=== PATIENT | male | born 1990 | race Caucasian/White ===

== ENCOUNTER 2016-04-30 10:04 | Emergency (ER) | payer OTHER ==
[~2016-04-30] VITALS: Ht 177.8 cm; Wt 95.3 kg
[~2016-04-30 10:04] MED LIST: BIAXIN250 MG PO; CYCLOBENZAPRINE10 M1 PO; FLEXERIL10 MG PO; HYDROCODONE/APA1 TA1 PO; LIORESAL 10MG T10 MG PO; MOTRIN 800MG T800 MG PO; NAPROSYN500 M1 PO; PERCOCET 325 MG1 TA2 PO; PERCOCET 5-3251 EACH PO
--- NOTE | 2016-04-30 11:16 | ED NECK/BACK PAIN COMPLAINT ---
History of Present Illness General Chief Complaint: Low Back Pain/Injury Stated Complaint: LOWER BACK PAIN Source: patient Exam Limitations: no limitations Vital Signs & Intake/Output Vital Signs & Intake/Output ED Intake and Output 05/01 0000 04/30 1200 Intake Total Output Total Balance Patient 210 lb Weight Allergies Coded Allergies: acetaminophen (Severe, "I DONT RESPOND WELL TO IT" 04/30/16) Reconcile Medications Cyclobenzaprine HCl 5 MG TABLET 1 TAB PO TIDPRN PRN muscle spasms Methylprednisolone. (Medrol) 4 MG TAB.DS.PK 1 DP PO AD disc herniation 6 on day 1 then reduce by one tablet daily until gone Naproxen (Naprosyn) 500 MG TABLET 1 TAB PO BID PRN pain and inflammation Triage Note: 26 Y/O MALE C/O MID/LOWER BACK PAIN. STATES ITS A "RE-OCCURING INJURY". DENIES RECENT INJURY OR TRAUMA. HAS NOT TAKEN ANY MEDICATION FOR PAIN. STATES PAIN RADIATES DOWN R LEG. Triage Nurses Notes Reviewed? yes HPI: This patient is a 26-year-old male past medical history including chronic lower back pain who presented to the emergency department today for evaluation of worsening lower back pain. The patient reported that he noticed the pain got worse when he tried to get up on Wednesday. He reported, "my back feels like an accordion, like I can't stretch it out." The patient reported that the pain is been constant since onset. He reported that he is only comfortable, "in the position on my right side." The pain occasionally radiates down his right leg to his right foot. The pain is sharp and throbbing. The patient has not tried taking a medication for his pain. He has never seen a specialist for this pain. He reported that he has been diagnosed with muscle strains in the past. 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 The patient denied any bowel or bladder incontinence, saddle paresthesia, numbness or tingling in his extremities, abdominal pain, urinary burning, urgency, frequency, blood in the urine, fevers, chills, chest pain, or difficulty breathing. Past History Travel History Traveled to [place] past 21 day No Medical History Any Pertinent Medical History? 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 Tetanus Vaccine: 08/22/15 Surgical History Surgical History: ACL RECONSTRUCTION R KNEE Psychosocial History What is your primary language Bahraini Tobacco Use: Current Not Daily Family History Hx Contributory? No Review of Systems Review of Systems Constitutional: Reports: no symptoms. Eyes: Reports: no symptoms. Ears, Nose, Throat, Mouth: Reports: no symptoms. Respiratory: Reports: no symptoms. Cardiovascular: Reports: no symptoms. Gastrointestinal/Abdominal: Reports: no symptoms. Musculoskeletal: Reports: see HPI. Skin: Reports: no symptoms. Neurological/Psychological: Reports: no symptoms. All Other Systems: Reviewed and Negative Physical Exam Physical Exam Neck: normal inspection, supple, full range of motion, normal alignment Comments: Well-developed well-nourished person in no acute distress HEENT: Normal EENT exam, head normocephalic, moist mucous membranes Back: Antalgic gait. Positive lumbar midline tenderness. Right and left sided lumbar paraspinal musculature tenderness to palpation. Positive straight leg raise on the left at 45. Positive straight leg raise on the right at 30 Respiratory: No respiratory distress. Speaking in full sentences Abdomen: Soft, nontender nondistended, no appreciable organomegaly. Normal bowel sounds. Extremity: Normal and equal pulses. 5 out of 5 muscular strength in all extremities Neuro: Alert oriented x3, cranial nerves II through XII grossly intact. Skin: No appreciable rash on exposed skin, skin is warm and dry. Psych: Mood and affect is normal Progress Differential Diagnosis: AAA, aortic dissection, cauda equina syn, herniated disc , myofascial strain, pyelo/UTI, sciatica, spinal cord inj, thoracic outlet syn, T/L spine injury, ureterolithiasis Plan of Care: Orders Procedure Date/time Status CT LUMB SPINE WO IV CONTRAST 04/30 1110 Active Current Medications Sig/Caroline Start time Last Medication Dose Stop Time Status Admin Carisoprodol 350 MG ONCE ONE 04/30 1115 AC (Soma) 04/30 1116 Ketorolac 60 MG ONCE ONE 04/30 1115 AC Tromethamine 04/30 1116 (Toradol) Diagnostic Imaging: Viewed by Me: CT Scan. Discussed w/RAD: CT Scan. Radiology Impression: PATIENT: YOLANDA GE PRESENT AGE: 26 PATIENT ACCOUNT NO: [id number] : 90 LOCATION: [facility] ORDERING PHYSICIAN: JANE BURRIS PA-C SERVICE DATE: 04/30/160 EXAM TYPE: CAT - CT LUMB SPINE WO IV CONTRAST EXAMINATION: CT LUMBAR SPINE WITHOUT CONTRAST CLINICAL INFORMATION: Rule out disc herniation. Low back pain. COMPARISON: None. TECHNIQUE: Helical non-contrast CT images were obtained through the lumbar spine and 1.25 and 2.5 mm axial reconstructions were reviewed along with sagittal and coronal MPRs. DLP: 1040.48 mGy-cm. FINDINGS: Lumbar spinal alignment is normal. The lumbar vertebrae demonstrate stature. The intervertebral disc space heights are relatively preserved. There is no fracture or dislocation. SPINAL LEVELS: T12-L1: No disc herniation, spinal canal or neural foraminal narrowing. L1-L2: No disc herniation, spinal canal or neural foraminal narrowing. L2-L3: No disc herniation, spinal canal or neural foraminal narrowing. L3-L4: There is a shallow broad-based disc bulge. There is no significant spinal canal stenosis. There is minimal narrowing of the right neural foramen. L4-L5: There is a shallow broad-based disc bulge. There is mild facet arthropathy. There is no significant spinal stenosis. The ventral thecal sac appears somewhat compressed. There is bilateral neural foraminal narrowing, mild in degree. L5-S1: There is a shallow broad-based disc bulge. There is facet arthropathy. No significant spinal canal stenosis. Neural foramina are widely patent. There is mild narrowing of the left neural foramen. IMPRESSION: There is mild spondylosis of the lower lumbar spine with shallow broad-based disc bulges at L3-L4, L4-L5, and L5-S1. DICTATED BY: ANUP HINTON MD DATE/TIME DICTATED:1155 CONTACT LENS CURVE GRINDER:ELSI DATE/TIME TRANSCRIBED:04/30/161155 CONFIDENTIAL, DO NOT COPY WITHOUT APPROPRIATE AUTHORIZATION. <Electronically signed in Other Vendor System> SIGNED BY: ANUP HINTON MD 04/30/16 1209 Departure Departure Disposition: HOME OR SELF CARE Condition: Stable Clinical Impression Primary Impression: Bulging disc Referrals: LILIAM DURAN DO (PCP/Family) JAMIR MACDONALD MD Additional Instructions: Take medication for pain as prescribed. Take muscle relaxant as prescribed. Please call your primary care physician as they will likely need to authorize you for an MRI of your back. Please also call the orthopedic physicians is provided to you in this packet for further evaluation and management. Avoid any strenuous activity or heavy lifting. He may apply ice or heat to the affected areas as needed. Gentle stretching. Return for any worsening symptoms or concerns. Departure Forms: Customer Survey General Discharge Information Prescriptions: Current Visit Scripts Cyclobenzaprine HCl 1 TAB PO TIDPRN PRN muscle spasms #15 TAB Naproxen (Naprosyn) 1 TAB PO BID PRN pain and inflammation #20 TAB Methylprednisolone. (Medrol) 1 DP PO AD #1 DP 6 on day 1 then reduce by one tablet daily until gone
--- NOTE | 2016-04-30 12:09 | CT SCAN REPORT ---
EXAMINATION: CT LUMBAR SPINE WITHOUT CONTRAST CLINICAL INFORMATION: Rule out disc herniation. Low back pain. COMPARISON: None. TECHNIQUE: Helical non-contrast CT images were obtained through the lumbar spine and 1.25 and 2.5 mm axial reconstructions were reviewed along with sagittal and coronal MPRs. DLP: 1040.48 mGy-cm. FINDINGS: Lumbar spinal alignment is normal. The lumbar vertebrae demonstrate stature. The intervertebral disc space heights are relatively preserved. There is no fracture or dislocation. SPINAL LEVELS: T12-L1: No disc herniation, spinal canal or neural foraminal narrowing. L1-L2: No disc herniation, spinal canal or neural foraminal narrowing. L2-L3: No disc herniation, spinal canal or neural foraminal narrowing. L3-L4: There is a shallow broad-based disc bulge. There is no significant spinal canal stenosis. There is minimal narrowing of the right neural foramen. L4-L5: There is a shallow broad-based disc bulge. There is mild facet arthropathy. There is no significant spinal stenosis. The ventral thecal sac appears somewhat compressed. There is bilateral neural foraminal narrowing, mild in degree. L5-S1: There is a shallow broad-based disc bulge. There is facet arthropathy. No significant spinal canal stenosis. Neural foramina are widely patent. There is mild narrowing of the left neural foramen. IMPRESSION: There is mild spondylosis of the lower lumbar spine with shallow broad-based disc bulges at L3-L4, L4-L5, and L5-S1.
[2016-04-30] MEDS ORDERED: NAPROSYN500 M1 PO (12:21)
[2016-04-30] MEDS ORDERED: MEDROL4 M2 PO (12:21)
[2016-04-30] MEDS ORDERED: CYCLOBENZAPRINE5 M2 PO (12:21)
[2016-04-30 12:32] VITALS: BP 159/78
== END 2016-04-30 12:33 ==
LOC: ERH 10:04
DX: M51.26 Other intervertebral disc displacement, lumbar region (principal)
CPT/HCPCS: 96372; J1885